=== PATIENT | female | born 1990 | race Caucasian/White ===

== ENCOUNTER 2021-10-16 06:33 | Emergency (ER) | payer BC ==
[~2021-10-16] VITALS: Ht 162.6 cm; Wt 81.6 kg
[2021-10-16 06:45] VITALS: BP 127/86
[2021-10-16] MEDS ORDERED: KETOROLAC 15 MG/ML VIAL IVP ONE (07:15)
[2021-10-16 07:46] LABS: BASOPHILS # (AUTO) 0.1 K/uL (0.00-0.22); BASOPHILS % (AUTO) 0.5 % (0.0-2.0); EOSINOPHILS % (AUTO) 0.1 % (0.0-4.0); HEMOGLOBIN 13.8 g/dL (12.0-16.0); LYMPHOCYTES # (AUTO) 1.4 K/uL (2.5-16.5); LYMPHOCYTES % (AUTO) 10.8 % (20.5-51.1); MEAN CORPUSCULAR HEMOGLOBIN 30 pg (27-31); MEAN CORPUSCULAR HGB CONC 34 g/dL (33-37); MONOCYTES # (AUTO) 0.6 K/uL (0.8-1.0); MONOCYTES % (AUTO) 4.5 % (1.7-9.3); NEUTROPHILS # (AUTO) 10.6 K/uL (1.8-7.7); NEUTROPHILS % (AUTO) 84.1 % (42.2-75.2); PLATELET COUNT (AUTO) 297 K/uL (140-450); RED BLOOD CELL COUNT(AUTO) 4.55 MIL/uL (4.20-5.40); RED CELL DISTRIBUTION WIDTH 12.7 % (11.6-13.7); WHITE BLOOD COUNT (AUTO) 12.6 K/uL (4.8-10.8)
[2021-10-16 08:07] LABS: APPEARANCE,URINE SL CLOUDY (CLEAR); BILIRUBIN,URINE NEGATIVE (NEGATIVE); BLOOD, URINE 3+ (NEGATIVE); COLOR,URINE YELLOW (YELLOW); LEUKOCYTE ESTERASE ,URINE 1+ (NEGATIVE); NITRITE, URINE POSITIVE (NEGATIVE); UGLUCOSE NEGATIVE (NEGATIVE)
[2021-10-16 08:08] LABS: ANION GAP 13.4 (8-16); CREATININE 0.8 mg/dL (0.6-1.3); POTASSIUM 4.4 mmol/L (3.5-5.1); TOTAL BILIRUBIN 0.3 mg/dL (0.0-1.0)
[2021-10-16 08:33] LABS: RBC,URINE 11-20 (MOD) /HPF (0-5)
[2021-10-16 08:34] LABS: YEAST,URINE None Seen /HPF (None Seen)
[2021-10-16] MEDS ORDERED: cefTRIAXone 1,000 MG VIAL ONE (08:36)
[2021-10-16 08:37] LABS: CALCIUM OXALATE CRYSTALS,UR None Seen /HPF (None Seen); COARSE GRANULAR CASTS,URINE None Seen /LPF (None Seen); FINE GRANULAR CASTS,URINE None Seen /LPF (None Seen); HYALINE CASTS, URINE None Seen /LPF (None Seen); OTHER CRYSTALS,URINE None Seen /HPF (None Seen); RED BLOOD CELL CASTS,URINE None Seen /LPF (None Seen); TRIPLE PHOSPHATE CRYSTAL,UR None Seen /HPF (None Seen); URIC ACID CRYSTALS,URINE 0-10 /HPF (None Seen); URINE AMORPHOUS URATE None Seen /HPF (None Seen); WAXY CASTS,URINE None Seen /LPF (None Seen)
[2021-10-16 08:38] LABS: OTHER CASTS, URINE None Seen /LPF (None Seen)
[2021-10-16 08:39] LABS: TRICHOMONAS,URINE None Seen /HPF (None Seen)
[2021-10-16] MEDS ORDERED: ACET-8386 PO (08:57)
[2021-10-16] MEDS ORDERED: NAPR-54 PO (08:57)
[2021-10-16] MEDS ORDERED: CEPH-588 PO (08:57)
[2021-10-16 09:20] VITALS: BP 90/54
== END 2021-10-16 09:20 | disposition home or self-care (01) ==
LOC: MED 06:33
DX: N39.0 Urinary tract infection, site not specified (principal); Z79.899 Other long term (current) drug therapy
CPT/HCPCS: 36415; 74176; 80053; 81001; 81025; 83690; 85025; 96365; 96375; 99284; J0696; J1885; 87086